=== PATIENT | female | born 1945 | race Caucasian/White ===

== ENCOUNTER 2016-08-02 12:52 | Outpatient (CLI) | payer MEDICARE ==
[2015-12-12 15:41] VITALS: BP 145/67
[2016-08-02 13:11] LABS: APPEARANCE,URINE Clear (CLEAR); COLOR,URINE Yellow (YELLOW); OCCULT BLOOD,URINE Negative (NEGATIVE); UROBILINOGEN URINE 0.2 Eu (0.2-1.0)
[2016-08-02 13:22] LABS: AMORPHOUS SEDIMENT,UR FEW (NEGATIVE)
== END 2016-08-02 12:53 ==
LOC: LAB 12:52
PROVIDERS: ATTEND Physician Assistant
DX: R10.30 Lower abdominal pain, unspecified (principal)
CPT/HCPCS: 81002

== ENCOUNTER 2016-09-26 18:19 | Emergency (ER) | payer MEDICARE, OTHER ==
--- NOTE | 2016-09-26 18:21 | ED Physician Documentation ---
General Adult - HISTORIAN Historian: patient - HPI Stated Complaint: weakness, vomiting Chief Complaint: General Adult Onset: hours Timing: still present Severity: moderate Further Comments: yes (Pt is a 71 yo female with hx Meniere's disease, who has had weakness, n/v today. 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 Pt attributes sx to a Menier's episode. Pt has had diarrhea, and says that she has had this with previous Meniere's episodes.) - PAST HX Past History: hypertension, other (Meniere's dz; HTN; HLD;) Surgeries/Procedures: other (partial colectomy in her 20's due to polyp.) - SOCIAL HX Smoking History: non-smoker - FAMILY HX Family History: No - VITAL SIGNS Vital Signs: Vital Signs Temp Pulse Resp BP Pulse Ox 145/67 12/12/15 17:45 - REVIEWED ASSESSMENTS Nursing Assessment Reviewed: Yes Vitals Reviewed: Yes <Channing Hanson - Last Filed: 09/26/16 19:15> - HISTORIAN Historian: patient, child - HPI Onset: hours Timing: still present Severity: moderate - ROS CONST: no problems - PAST HX Past History: hypertension, other Surgeries/Procedures: other - SOCIAL HX Smoking History: non-smoker - FAMILY HX Family History: No - VITAL SIGNS Vital Signs: Vital Signs Temp Pulse Resp BP Pulse Ox 97.6 F 89 20 194/97 96 09/26/16 18:19 09/26/16 18:19 09/26/16 18:19 09/26/16 18:19 09/26/16 18:19 - REVIEWED ASSESSMENTS Nursing Assessment Reviewed: Yes Vitals Reviewed: Yes <DEISY GAN - Last Filed: 09/26/16 20:33> - PAST HX Allergies/Adverse Reactions: Allergies Allergy/AdvReac Type Severity Reaction Status Date / Time No Known Allergies Allergy Verified 09/26/16 19:26 Home Medications: Ambulatory Orders Medication Instructions Recorded Omeprazole [Prilosec] 40 mg PO D 09/26/16 Ondansetron HCl Tablet [Zofran] 5 mg PO PRN PRN 09/26/16 Progress - Progress Progress: Zofran 4 mg IV Meclizine 25 mg po Care transferred to Deisy Gan at 1900. <Channing Hanson - Last Filed: 09/26/16 19:15> - Progress Progress: 2024, given phenergan as she still felt nausea and dizziness after meclizine and zofran. No color is better and she is momentarily able to focus her gaze. Says she has meclizine and zofran at home. Will give her script for phenergan tabs. Asked for valium shot earlier. <DEISY GAN - Last Filed: 09/26/16 20:33> ED Results Lab/Radiology - Orders Orders: ED Orders Category Date Time Status Place Saline Lock/IV Now Care 09/26/16 18:53 Active Meclizine HCl [Antivert] Med 09/26/16 18:56 Discontinued 25 mg PO NOW ONE Ondansetron HCl/Pf [Zofran 4 mg/2 ml] Med 09/26/16 18:47 Discontinued 4 mg .ROUTE .STK-MED ONE Ondansetron HCl/Pf [Zofran 4 mg/2 ml] Med 09/26/16 18:46 Discontinued 4 mg IVP NOW ONE Promethazine HCl [Phenergan] Med 09/26/16 19:42 Discontinued 25 mg IM NOW ONE <DEISY GAN - Last Filed: 09/26/16 20:33> General Adult Physical Exam - PHYSICAL EXAM GENERAL APPEARANCE: moderate distress EENT: pharynx normal NECK: normal inspection, supple RESPIRATORY: no resp distress, chest non-tender, breath sounds normal CVS: reg rate & rhythm, heart sounds normal ABDOMEN: tenderness (diffuse) BACK: normal inspection SKIN: warm/dry, normal color EXTREMITIES: non-tender, normal range of motion NEURO: oriented X3, motor nml, sensation nml <Channing Hanson - Last Filed: 09/26/16 19:15> - PHYSICAL EXAM GENERAL APPEARANCE: moderate distress NECK: normal inspection, supple RESPIRATORY: no resp distress BACK: other (movements w/o pain) SKIN: warm/dry, normal color EXTREMITIES: non-tender NEURO: motor nml, sensation nml <DEISY GAN - Last Filed: 09/26/16 20:33> Discharge <Channing Hanson - Last Filed: 09/26/16 19:15> Decision to Admit: NO Decision Time: 20:25 <DEISY GAN - Last Filed: 09/26/16 20:33> Clincal Impression: Menieres disease Additional Instructions: Home to sleep. Follow up with Dr. Rocha in the next 3-5 days. Home Medications: Ambulatory Orders Omeprazole [Prilosec] 40 mg PO D 09/26/16 Ondansetron HCl Tablet [Zofran] 5 mg PO PRN PRN 09/26/16 Condition: Fair Disposition: 01 HOME, SELF-CARE
[2016-09-26] MEDS ORDERED: ONDANSETRON HCL/PF 4 MG/ 2ML VIAL IVP ONE (18:46)
[2016-09-26] MEDS ORDERED: ONDANSETRON HCL/PF 4 MG/ 2ML VIAL ONE (18:47)
[2016-09-26] MEDS ORDERED: MECLIZINE HCL 25 MG TABLET PO ONE (18:56)
[2016-09-26] MEDS ORDERED: PROMETHAZINE HCL 25 MG/ML VIAL IM ONE (19:42)
[2016-09-27 01:32] VITALS: BP 153/72
== END 2016-09-26 20:45 | disposition home or self-care (01) ==
LOC: ED 18:19
DX: H81.09 Meniere's disease, unspecified ear (principal)
CPT/HCPCS: 96372; 96374; 99283; 99284; J2405; J2550; S1016

== ENCOUNTER 2017-11-05 11:50 | Outpatient (CLI) | payer MEDICARE ==
[2016-09-27 01:32] VITALS: BP 153/72
[2017-11-05 12:30] LABS: BASOPHILS % 0.4 (0.0-1.5); EOSINOPHILS % 1.5 % (0.0-6.8); MEAN CORPUSCULAR HEMOGLOBIN 29.1 pg (28.0-34.0); MEAN CORPUSCULAR VOLUME 89.8 fl (80.0-100.0); NEUTROPHILS # 4.3 # k/uL (1.4-7.7)
[2017-11-05 12:58] LABS: eGFR (African) > 60; eGFR (Non-African) > 60
--- NOTE | 2017-11-05 18:17 | Diagnostic Imaging Report ---
MINH HOUSER [facility] [address] [facility] [address] [address] Report Submission Date: November 05, 2017 12:28:53 PM CDT Patient Study Name: CHARLES MCCORMACK Date: November 05, 2017 12:13:59 PM CDT Modality Type: DX Gender: F Description: CHEST : 47 Institution: [facility] Physician: MINH HOUSER Examination: PA and lateral chest. History: CXR, DYSPNEA ON EXERTION, WORSENING X2 WEEKS (Hx) Comparison exam: None available Findings: PA lateral chest demonstrate a normal cardiac and mediastinal silhouette. Tortuous aorta. No focal infiltrate. No blunting of the costophrenic margins. Osseous structures are appropriate for age. Impression: No acute pulmonary process. Electronically signed on November 05, 2017 12:28:53 PM CDT by: Zackery NUNEZ
== END 2017-11-05 11:52 ==
LOC: RT 11:50
PROVIDERS: ATTEND Family Medicine
DX: R06.09 Other forms of dyspnea (principal); I10 Essential (primary) hypertension
CPT/HCPCS: 36415; 71046; 80053; 85025

== ENCOUNTER 2017-11-11 15:35 | Outpatient (CLI) | payer MEDICARE ==
[2016-09-27 01:32] VITALS: BP 153/72
== END 2017-11-11 15:36 ==
LOC: CARD 15:35
PROVIDERS: ATTEND Internal Medicine Cardiovascular Disease
DX: R06.00 Dyspnea, unspecified (principal); I10 Essential (primary) hypertension; E78.00 Pure hypercholesterolemia, unspecified
CPT/HCPCS: G0463

== ENCOUNTER 2018-01-20 14:24 | Outpatient (CLI) | payer MEDICARE ==
[2016-09-27 01:32] VITALS: BP 153/72
[2018-01-20 15:09] LABS: BASOPHILS % 0.5 (0.0-1.5); EOSINOPHILS % 0.9 % (0.0-6.8); MEAN CORPUSCULAR HEMOGLOBIN 29.6 pg (28.0-34.0); MEAN CORPUSCULAR VOLUME 90.7 fl (80.0-100.0); NEUTROPHILS # 5.2 # k/uL (1.4-7.7)
[2018-01-20 15:19] LABS: eGFR (African) > 60; eGFR (Non-African) > 60
== END 2018-01-20 14:26 ==
LOC: LAB 14:24
PROVIDERS: ATTEND Physician Assistant
DX: R00.2 Palpitations (principal); R42 Dizziness and giddiness
CPT/HCPCS: 36415; 80053; 84443; 85025